=== PATIENT | male | born 1970 | race Caucasian/White ===

== ENCOUNTER 2018-10-24 22:24 | Emergency (ER) | payer BC ==
[~2018-10-24] VITALS: Ht 185.4 cm; Wt 113.4 kg
[2018-10-24 22:31] VITALS: Ht 185.4 cm; Wt 113.4 kg
[2018-10-24] MEDS ORDERED: VYVANSE70 MG PO (22:34)
[2018-10-24] MEDS ORDERED: CRESTOR40 MG PO (22:35)
[2018-10-24] MEDS ORDERED: ZOLOFT50 MG PO (22:35)
[2018-10-24] MEDS ORDERED: LOSARTAN/HCTZ (22:35)
[2018-10-24] MEDS ORDERED: BUPROPION XL300 MG PO (22:35)
[2018-10-24] MEDS ORDERED: ZYRTEC10 MG PO (22:36)
[2018-10-24 22:49] LABS: BASOPHILS 0.2 % (0-2); EOSINOPHILS 0.7 % (0-7); HEMATOCRIT 44.3 % (42.0-54.0); HEMOGLOBIN 15.7 g/dL (13.5-17.5); IMMATURE GRANULOCYTES 0.2 % (0-5); MCH 30.4 pg (26.0-34.0); MCHC 35.4 g/dL (31.0-37.0); MCV 85.9 fL (80.0-100.0); MEAN PLATELET VOLUME 10.7 fL (7.4-10.4); MONOCYTES 10.9 % (2-11); PLATELET COUNT 249 10x3/uL (130-400); RBC 5.16 10x6/uL (4.20-6.10); RDW 14.1 % (11.5-14.5); WBC 9.7 10x3/uL (4.8-10.8)
[2018-10-24 23:18] LABS: ALBUMIN 3.9 g/dL (3.4-5.0); ALKALINE PHOSPHATASE 66 U/L (46-116); ALT (SGPT) 40 U/L (10-68); BILIRUBIN - TOTAL 0.86 mg/dL (0.2-1.3); CALC OSMOLALITY 281 mosm/kg (275-300); CALCIUM 8.5 mg/dL (8.5-10.1); CARBON DIOXIDE 23.7 mmol/L (21.0-32.0); CHLORIDE - SERUM 104 mmol/L (98-107); CREATININE - SERUM 1.3 mg/dL (0.6-1.3); GLUCOSE 82 mg/dL (74-106); POTASSIUM - SERUM 3.1 mmol/L (3.5-5.1); PROTEIN - SERUM 7.4 g/dL (6.4-8.2); SODIUM 141 mmol/L (136-145); UREA NITROGEN 17 mg/dL (7-18); eGFR NON AFRICAN AMERICAN 63 mL/min (90-120)
[2018-10-24 23:41] LABS: CKMB 0.7 U/L (0.0-3.6); CREATINE KINASE 96 UL (21-232); MAGNESIUM - SERUM 1.8 mg/dL (1.8-2.4); THYROID STIMULATING HORMONE 3.04 uIU/mL (0.36-3.74); TROPONIN-I < 0.017 ng/mL (0.000-0.060)
[2018-10-25 02:01] LABS: CKMB 0.8 U/L (0.0-3.6); CREATINE KINASE 75 UL (21-232); TROPONIN-I 0.026 ng/mL (0.000-0.060)
[2018-10-25] MEDS ORDERED: CARDIZEM CD240 MG PO (02:18)
[2018-10-25 02:30] VITALS: BP 102/71
== END 2018-10-25 02:30 | disposition home or self-care (01) ==
LOC: D.ER 22:24
PROVIDERS: Family Medicine
DX: I48.91 Unspecified atrial fibrillation (principal)